=== PATIENT | male | born 1975 | race Caucasian/White ===

== ENCOUNTER 2017-05-01 00:18 | Emergency (ER) | payer SELFPAY ==
--- NOTE | 2017-05-01 20:05 | ER ---
ADMIT: 05/01/2017 RM/LOC: SHERITA [facility] MR#: [id number] [facility] [address] [place] [id number] DAO SHI [address] [place] [id number] Emergency Room Report SEX: M AGE: 42 : 1975 DATE: 05/01/2017 TIME: 0018. Please refer to my T-sheet for complete H and P. HISTORY OF PRESENT ILLNESS: Briefly, the patient is a 42-year-old who was brought in for seizure. Apparently, the officer was following his car, looked suspicious. The patient actually pulled over, walked back, was discussing things with the officer. When he is going to take him to care home, he had a "seizure" and fell on the ground. He still had another seizure on the way in. He has a known seizure disorder. He is on Dilantin and gabapentin. He also has a psychiatric schizophrenic history according to his girlfriend. He is not able to give any of the history at first. They gave him 2 of Ativan per nasal. On route, they could not establish an IV, and he had at least 2 witnessed seizures. PHYSICAL EXAMINATION: VITAL SIGNS: Blood pressure 144/86, pulse 130, respirations 16, temperature 97.3, and saturating 99%. GENERAL: He has abrasions on his face, and he convulsed in front of me when I walked in the room. Otherwise, his pupils are equal, round, and reactive. Nose is clear. Throat is clear. NECK: Soft, supple. No meningismus. LUNGS: Clear. HEART: Tachy, regular. ABDOMEN: Soft. SKIN: No rash. EMERGENCY DEPARTMENT COURSE: His CBC came back normal. Dilantin was low at 4. Head CT was negative for acute findings. UA was normal except 5 red cells. Chemistries that were obtained were normal. His tox screen is still pending at the time of the dictation, but his significant other does admit that he does have a history of drug abuse, she does not think recently. He was given 500 mL normal saline bolus while the police were here. He had a couple episodes that ADMIT: 05/01/2017 RM/LOC: ER [facility] MR#: [id number] [address] [id number] [place] [address] Emergency Room Report SEX: M AGE: 42 : 1975 appeared to be seizures. They said then they were given just citing with a ticket and let him go on his way. He had not had a seizure since. We gave him Dilantin 300 p.o. because his level was low. He was snoozing, resting comfortably, easily arousable. His girlfriend was here to help take him home, and he was ready for discharge. ASSESSMENT: 1. Seizure, generalized. 2. Social issues confounding the actual seizures. 3. Subtherapeutic Dilantin. PLAN: Take his medications as directed. Avoid recreational drugs. Return if worse. Follow up with [facility] here and no driving. Miguel Garcia MD/ [place] JOB #: [id number] CC: Miguel Garcia MD, Attending Physician
== END 2017-05-01 03:14 | disposition home or self-care (01) ==
LOC: ER 00:18
DX: G40.409 Other generalized epilepsy and epileptic syndromes, not intractable, without status epilepticus (principal); R78.89 Finding of other specified substances, not normally found in blood; F32.9 Major depressive disorder, single episode, unspecified; F20.9 Schizophrenia, unspecified; Z79.899 Other long term (current) drug therapy; W18.30XA Fall on same level, unspecified, initial encounter

== ENCOUNTER 2017-05-14 02:08 | Emergency (ER) | payer SELFPAY ==
--- NOTE | 2017-05-17 19:05 | ER ---
ADMIT: 05/14/2017 RM/LOC: ER [facility] MR#: [id number] [facility] [address] [place] [id number] DOA SHI [address] [place] [id number] Emergency Room Report SEX: M AGE: 42 : 1975 DATE: 05/14/2017 The patient is a 42-year-old male with traumatic brain injury, seizure disorder, with 3 normal EEGs over the past 10 years, was under arrest and had witnessed tonoclonic seizure, no incontinence. The patient is admittedly noncompliant and does use illicit drugs. Exam remarkable for nontoxic, afebrile male, with intermittent tonoclonic seizures. Treated with Ativan 1 mg IV push, Dilantin 1 g IV piggyback load, and Depakote 500 mg piggyback load. Lactic acid 2.3, CRP 0.64, Depakote level less than 3.0, Dilantin level less than 0.4, EtOH negative. Tox screen positive for amphetamine and THC, likely contributory to seizure. Discharged with Depakote 1 g b.i.d. #60 and Dilantin 100 mg three p.o. at bedtime #90. Released in police custody. Thomas Go MD/ aleen[place] JOB #: [id number] CC: Thomas Go MD, Attending Physician Hermelinda Ferrera MD, Family Physician Hermelinda Ferrera MD
== END 2017-05-14 05:54 ==
LOC: ER 02:08
DX: G40.909 Epilepsy, unspecified, not intractable, without status epilepticus (principal); F20.9 Schizophrenia, unspecified; F31.9 Bipolar disorder, unspecified; F17.200 Nicotine dependence, unspecified, uncomplicated; Z79.899 Other long term (current) drug therapy; Z87.81 Personal history of (healed) traumatic fracture